=== PATIENT | male | born 1970 | race Caucasian/White ===

== ENCOUNTER 2018-09-28 13:03 | Emergency (ER) | payer MEDICARE, MEDICAID ==
--- NOTE | 2018-09-28 13:26 | ER Document Report ---
ED Medical Screen (RME) - General Chief Complaint: Calf Pain Stated Complaint: RIGHT LEG PAIN Time Seen by Provider: 09/28/18 13:22 Primary Care Provider: ALONZO HATCH [Primary Care Provider] - Follow up as needed Mode of Arrival: Wheelchair Information source: Patient Notes: Patient is a 48-year-old male with history of DVTs presenting to the emergency department with chief complaint of right leg pain and swelling. Patient reports symptoms started this morning. Patient states that he supposed to be taking Xarelto but has been off of it for 3 months. Patient states that he feels like this is the same pain as when he has had a DVT in the past. Exam: Mild swelling noted to the right lower extremity. Difficult to fully evaluate leg due to patient's position in a wheelchair and in triage. I have greeted and performed a rapid initial assessment of this patient. A comprehensive ED assessment and evaluation of the patient, analysis of test results and completion of the medical decision making process will be conducted by additional ED providers. Dictation of this chart was performed using voice recognition software; therefore, there may be some unintended grammatical errors. - Related Data Allergies/Adverse Reactions: No Known Drug Allergies Allergy (Verified 09/28/18 13:13) ziprasidone [From Geodon] Allergy (Verified 09/28/18 13:16) Fish Allergy (Uncoded 09/28/18 13:16) [place] Allergy (Uncoded 09/28/18 13:16) Physical Exam - Vital signs Vitals: Temp Pulse Resp BP Pulse Ox 98.0 F 71 18 109/80 94 09/28/18 13:16 09/28/18 13:16 09/28/18 13:16 09/28/18 13:16 09/28/18 13:16 Course - Vital Signs Vital signs: Temp Pulse Resp BP Pulse Ox 98.0 F 71 18 109/80 94 09/28/18 13:16 09/28/18 13:16 09/28/18 13:16 09/28/18 13:16 09/28/18 13:16 Doctor's Discharge - Discharge Referrals: ALONZO HATCH [Primary Care Provider] - Follow up as needed
[2018-09-28 15:04] VITALS: BP 115/76
--- NOTE | 2018-09-28 15:06 | RADIOLOGY REPORT (SQ) ---
EXAM DESCRIPTION: VENOUS UNILATERAL LOWER COMPLETED DATE/TIME: 09/28/2018 2:57 pm REASON FOR STUDY: right leg pain, hx of DVT COMPARISON: None. TECHNIQUE: Dynamic and static muñoz scale and color images acquired of the right leg venous system. S elected spectral images acquired with additional compression and augmentation maneuvers. The contrala teral common femoral vein and saphenofemoral junction were also imaged. Images stored on PACS. LIMITATIONS: None. FINDINGS: COMMON FEMORAL: Normal phasicity, compression and augmentation. No visualized echogenic ma terial on muñoz scale. No defects on color images. FEMORAL: Normal compression and augmentation. No visualized echogenic material on muñoz scale. No defe cts on color images. POPLITEAL: Normal compression, augmentation. No visualized echogenic material on muñoz scale. No defec ts on color images. CALF VESSELS: Normal compression, augmentation. No visualized echogenic material on muñoz scale. No de fects on color images. GSV and SSV: Normal compression, augmentation. No visualized echogenic material on muñoz scale. No def ects on color images. ANY DEEP VENOUS INSUFFICIENCY: Not evaluated. ANY EVIDENCE OF POPLITEAL CYST: No. OTHER: No other significant finding. CONTRALATERAL COMMON FEMORAL VEIN AND SAPHENOFEMORAL JUNCTION: Normal phasicity, compression and augmentation. No visualized echogenic material on muñoz scale. No de fects on color images. IMPRESSION: 1. NO EVIDENCE OF DVT OR SVT IN THE RIGHT LEG. TECHNICAL DOCUMENTATION: JOB ID: [id number] [employer]- All Rights Reserved Reading location - IP/workstation name: [email or web address]
--- NOTE | 2018-09-28 15:18 | ER Document Report ---
ED Extremity Problem, Lower - General Chief Complaint: Leg Swelling Stated Complaint: RIGHT LEG PAIN Time Seen by Provider: 09/28/18 13:22 Primary Care Provider: ALONZO HATCH [NO LOCAL MD] - Follow up as needed Mode of Arrival: Wheelchair Information source: Patient Notes: Patient is a 48-year-old male with history of DVTs presenting to the emergency department with chief complaint of right leg pain and swelling. Patient reports symptoms started this morning. Patient states that he supposed to be taking Xarelto but has been off of it for 3 months. Patient states that he feels like this is the same pain as when he has had a DVT in the past. - Related Data Allergies/Adverse Reactions: No Known Drug Allergies Allergy (Verified 09/28/18 13:13) ziprasidone [From Geodon] Allergy (Verified 09/28/18 13:16) Fish Allergy (Uncoded 09/28/18 13:16) [place] Allergy (Uncoded 09/28/18 13:16) Past Medical History - General Information source: Patient - Social History Smoking Status: Never Smoker Frequency of alcohol use: None Drug Abuse: None Lives with: Alone Family History: Reviewed & Not Pertinent Patient has suicidal ideation: No Patient has homicidal ideation: No - Past Medical History Cardiac Medical History: Reports: Hx DVT, Hx Hypertension Renal/ Medical History: Denies: Hx Peritoneal Dialysis Psychiatric Medical History: Reports: Hx Bipolar Disorder Review of Systems - Review of Systems Constitutional: No symptoms reported EENT: No symptoms reported Cardiovascular: No symptoms reported Respiratory: No symptoms reported Gastrointestinal: No symptoms reported Genitourinary: No symptoms reported Male Genitourinary: No symptoms reported Musculoskeletal: See HPI Skin: No symptoms reported Hematologic/Lymphatic: No symptoms reported Neurological/Psychological: No symptoms reported Physical Exam - Vital signs Vitals: Temp Pulse Resp BP Pulse Ox 98.0 F 71 18 109/80 94 09/28/18 13:16 09/28/18 13:16 09/28/18 13:16 09/28/18 13:16 09/28/18 13:16 - Notes Notes: PHYSICAL EXAMINATION: GENERAL: Well-appearing, well-nourished and in no acute distress. HEAD: Atraumatic, normocephalic. EYES: Pupils equal round and reactive to light, extraocular movements intact, sclera anicteric, conjunctiva are normal. ENT: Nares patent, oropharynx clear without exudates. Moist mucous membranes. NECK: Normal range of motion, supple without lymphadenopathy LUNGS: Breath sounds clear to auscultation bilaterally and equal. No wheezes rales or rhonchi. HEART: Regular rate and rhythm without murmurs ABDOMEN: Soft, nontender, nondistended abdomen. No guarding, no rebound. No masses appreciated. Musculoskeletal: Normal range of motion, no pitting or edema. No cyanosis. Mild swelling noted to right lower extremity, no erythema or heat noted. Normal dorsalis pedis and anterior tibialis pulses. NEUROLOGICAL: Cranial nerves grossly intact. Normal speech, normal gait. Normal sensory, motor exams PSYCH: Normal mood, normal affect. SKIN: Warm, Dry, normal turgor, no rashes or lesions noted. Course - Re-evaluation Re-evalutation: Venous Dopplers negative. Results discussed with patient. Patient will be discharged home. Patient encouraged to return for repeat venous Doppler in 10 to 14 days of his pain continues return sooner if worsening. - Vital Signs Vital signs: Temp Pulse Resp BP Pulse Ox 98.0 F 62 18 115/76 97 09/28/18 15:04 09/28/18 15:04 09/28/18 15:04 09/28/18 15:04 09/28/18 15:04 Discharge - Discharge Clinical Impression: Right leg pain Condition: Stable Disposition: HOME, SELF-CARE Additional Instructions: The venous Doppler ultrasound today was negative. At this point in time there does not appear to be a blood clot. If you continue to have pain or increased swelling he may want to consider having another venous Doppler ultrasound done in 10 to 14 days with your primary care provider. Return to the emergency department for any new or worsening symptoms. Referrals: LOCALMD,NO [NO LOCAL MD] - Follow up as needed
== END 2018-09-28 15:26 | disposition home or self-care (01) ==
LOC: ER 13:03
DX: M79.604 Pain in right leg (principal); M79.89 Other specified soft tissue disorders; I10 Essential (primary) hypertension; Z86.718 Personal history of other venous thrombosis and embolism; Z88.8 Allergy status to other drugs, medicaments and biological substances; Z91.013 Allergy to seafood
CPT/HCPCS: 93971; 99283